=== PATIENT | female | born 1950 | race Caucasian/White ===

== ENCOUNTER 2016-07-25 13:06 | Outpatient (CLI) | payer MEDICARE, OTHER ==
[2016-07-25 17:33] LABS: Anion Gap 17 mmol/L (10-20); BUN (Urea Nitrogen) 21 mg/dL (9.8-20.1); Calc. Creatinine Clearance 0 mL/min (70-130); Calcium 9.8 mg/dL (7.8-10.44); Carbon Dioxide 27 mmol/L (23-31); Chloride 101 mmol/L (98-107); Estimated GFR-MDRD 46
== END 2016-07-25 13:07 | disposition home or self-care (01) ==
LOC: NAVSJIPCSP 13:06
PROVIDERS: ATTEND Internal Medicine Nephrology
DX: I12.9 Hypertensive chronic kidney disease with stage 1 through stage 4 chronic kidney disease, or unspecified chronic kidney disease (principal); N18.3 Chronic kidney disease, stage 3 (moderate)
CPT/HCPCS: 80048; 82570; 84156

== ENCOUNTER 2016-09-05 11:31 | Emergency (ER) | payer MEDICARE, OTHER ==
[~2016-09-05 11:31] MED LIST: Iopamidol 370 76% 100 ML VIAL ONE
[2016-09-05 12:15] LABS: #Basophils 0.2 thou/uL (0.0-0.2); #Eosinphils 0.5 thou/uL (0.0-0.7); #Lymphocytes 2.7 thou/uL (1.20-3.40); #Monocytes 0.7 thou/uL (0.11-0.59); #Neutrophils 10.3 thou/uL (1.40-6.50); %Basophils 1.1 % (0.0-1.0); %Eosinophils 3.8 % (0.0-10.0); %Lymphocytes 18.9 % (21.0-51.0); %Monocytes 4.7 % (0.0-10.0); %Neutrophils 71.5 % (42.0-75.0); Hemoglobin 15.7 g/dL (12.0-16.0); Mean Corpuscular HGB CONC 33.7 g/dL (32.0-36.0); Mean Corpuscular Volume 89.2 fl (81.0-99.0); Mean Platelet Volume 7.5 fL (7.4-10.4); Platelet Count 263 thou/uL (130-400); RBC Distribution Width 11.9 % (11.5-14.5); Red Blood Cell (RBC) Count 5.22 mill/uL (4.20-5.40); White Blood Cell (WBC) Count 14.4 thou/uL (4.8-10.8)
[2016-09-05 12:25] LABS: ALT (SGPT) 22 U/L (0-55); AST (SGOT) 18 U/L (5-34); Albumin 4.4 g/dL (3.4-4.8); Alkaline Phosphatase 95 U/L (40-150); Anion Gap 16 mmol/L (10-20); BUN (Urea Nitrogen) 20 mg/dL (9.8-20.1); Bilirubin, Total 0.4 mg/dL (0.2-1.2); Calc. Creatinine Clearance 0 mL/min (70-130); Calcium 9.5 mg/dL (7.8-10.44); Carbon Dioxide 26 mmol/L (23-31); Chloride 101 mmol/L (98-107); Estimated GFR-MDRD 33; Glucose 104 mg/dL (80-115); Potassium 3.7 mmol/L (3.5-5.1); Protein, Total 7.4 g/dL (5.8-8.1); Sodium 139 mmol/L (136-145)
--- NOTE | 2016-09-05 15:12 | CT ---
CT ANGIO ABDOMEN AND PELVIS WITH CONTRAST: Date: 09/05/16 HISTORY: Evaluate aortic graft. COMPARISON: None. TECHNIQUE: CT angiogram of the abdomen and pelvis performed after the intravenous administration of contrast. 3 D rendering provided. FINDINGS: There are innumerable calcified granulomas throughout both breasts. Lung bases are clear. No pericardial effusion. Spleen is unremarkable. The left kidney is atrophic. Pancreas unremarkable. Likely hepatic steatosis. There is an arterial enhancing mass within the dome of the liver measuring 1.1 x 1.0 cm, hepatic segment 8, large feeding vessel. No adenopathy in the abdomen. Adrenal glands are unremarkable. Moderate diverticular disease sigmoid colon. No free intraperitoneal gas or fluid within the visuali zed upper abdomen. Moderate degenerative disc space disease at L5-S1. Moderate facet arthrosis L4-5 and L5-S1. Vessels: There is extensive plaque of the distal thoracic aorta without narrowing. There is a right renal art erial stent which is nearly completely occluded at the mid portion of the stent, although there is f low within the right renal artery which suggests a near complete stenosis. There is poor enhancement of the right kidney parenchyma. No right renal collateral artery is present. The left renal artery appears nearly completely occluded, although there is some enhancement of the left kidney. There is multifocal 30-40% soft plaque in the upper abdominal aorta. There is soft plaque narrowing of the ostia of the superior celiac artery of approximately 30%. The ostia of the superior mesenteric artery is narrowed by approximately 30%. There is a focal outpouchi ng of the upper abdominal aorta with aorta measuring 3.2 x 2.4 cm with focal outpouching adjacent to the celiac trunk measuring 0.6 x 0.5 x 1.3 cm. The aortobiiliac graft is patent. There is complete occlusion of the [place] proximal iliac arteries. No evidence for endograft leak. IMPRESSION: 1. No evidence of endograft leak. 2. Focal diverticulum and outpouching with minimal overlying stroma over the proximal abdominal aor ta with the diverticulum measuring 0.4 x 0.6 x 1.3 cm. 3. 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 4. 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 5. Arterial enhancing lesion in the hepatic dome measuring 1.1 x 1.0 cm in hepatic segment 8 which may represent a hemangioma. Follow-up ultrasound could be performed in 6 months. 6. Patent aortobiiliac graft with patent anastomosis. POS: [facility]
== END 2016-09-05 15:21 | disposition home or self-care (01) ==
LOC: NAV ERS 11:31
DX: I70.1 Atherosclerosis of renal artery (principal); I10 Essential (primary) hypertension; E05.90 Thyrotoxicosis, unspecified without thyrotoxic crisis or storm; E78.5 Hyperlipidemia, unspecified; F17.210 Nicotine dependence, cigarettes, uncomplicated; Z98.890 Other specified postprocedural states
CPT/HCPCS: 74174; 80053; 85025

== ENCOUNTER 2016-10-18 16:32 | Emergency (ER) | payer MEDICARE, OTHER | END 2016-10-18 16:53 | disposition home or self-care (01) | LOC: NAV ERS 16:32 | DX: K08.89 Other specified disorders of teeth and supporting structures (principal); E05.90 Thyrotoxicosis, unspecified without thyrotoxic crisis or storm; E78.5 Hyperlipidemia, unspecified; I12.9 Hypertensive chronic kidney disease with stage 1 through stage 4 chronic kidney disease, or unspecified chronic kidney disease; N18.9 Chronic kidney disease, unspecified; F17.210 Nicotine dependence, cigarettes, uncomplicated; Z99.2 Dependence on renal dialysis | CPT/HCPCS: 99282 ==

== ENCOUNTER 2017-01-01 11:21 | Outpatient (CLI) | payer MEDICARE, OTHER ==
--- NOTE | 2017-01-01 12:20 | RAD ---
PA AND LATERAL CHEST: History: Fever, cough, chills. FINDINGS: Comparison made with exam of 09-09-16. The heart size is normal. Lungs are well expanded without focal areas of consolidation, pneumothorax , or pleural effusions. Chronic changes are again seen in the lung apices. IMPRESSION: No radiographic evidence of acute cardiopulmonary process. POS: [facility]
== END 2017-01-01 11:22 | disposition home or self-care (01) ==
LOC: NAV RAD 11:21
PROVIDERS: ATTEND Nurse Practitioner Family
DX: R50.9 Fever, unspecified (principal)
CPT/HCPCS: 71020

== ENCOUNTER 2018-05-18 11:11 | Emergency (ER) | payer MEDICARE, OTHER ==
[2018-05-18] MEDS ORDERED: Sodium Chloride 0.9% 1,000 ML ONE ×2 (11:50→14:52)
[2018-05-18] MEDS ORDERED: Sodium Chloride 0.9% 100 ML ONE (11:51)
[2018-05-18] MEDS ORDERED: Piperacillin/Tazobactam 3.375 GM VIAL ONE (11:51)
[2018-05-18 11:59] LABS: #Basophils 0.1 thou/uL (0.0-0.2); #Eosinphils 0.1 thou/uL (0.0-0.7); #Lymphocytes 2.1 thou/uL (1.20-3.40); #Monocytes 1.2 thou/uL (0.11-0.59); #Neutrophils 12.7 thou/uL (1.40-6.50); %Basophils 0.7 % (0.0-1.0); %Eosinophils 0.4 % (0.0-10.0); %Lymphocytes 13.2 % (21.0-51.0); %Monocytes 7.6 % (0.0-10.0); %Neutrophils 78.1 % (42.0-75.0); Mean Corpuscular HGB CONC 33.2 g/dL (32.0-36.0); Mean Corpuscular Hemoglobin 28.7 pg (27.0-31.0); Mean Corpuscular Volume 86.4 fL (78.0-98.0); Mean Platelet Volume 6.7 fL (7.4-10.4); Platelet Count 389 thou/uL (130-400); RBC Distribution Width 11.7 % (11.5-14.5); Red Blood Cell (RBC) Count 4.18 mill/uL (4.20-5.40); White Blood Cell (WBC) Count 16.2 thou/uL (4.8-10.8)
--- NOTE | 2018-05-18 12:04 | RAD ---
2 VIEW CHEST: Date: 05/18/18 HISTORY: Cough. COMPARISON: 01/01/17. FINDINGS: There is evidence of increased density in the right lung base. Overlying breast attenuation is presen t; however, this density does appear asymmetric and is concerning for focal infiltrate in the right l ower lobe. Lungs otherwise clear and unchanged. IMPRESSION: Evidence of new right lower lobe infiltrate. POS: [facility]
[2018-05-18 12:11] LABS: ALT (SGPT) 45 U/L (8-55); AST (SGOT) 36 U/L (5-34); Albumin 3.6 g/dL (3.4-4.8); Alkaline Phosphatase 98 U/L (40-150); Anion Gap 17 mmol/L (10-20); BUN (Urea Nitrogen) 18 mg/dL (9.8-20.1); Bilirubin, Total 0.6 mg/dL (0.2-1.2); Calc. Creatinine Clearance 0 mL/min (70-130); Calcium 9.6 mg/dL (7.8-10.44); Carbon Dioxide 23 mmol/L (23-31); Chloride 102 mmol/L (98-107); Estimated GFR-MDRD 26; Globulin 3.7 g/dL (2.4-3.5); Glucose 123 mg/dL (80-115); Potassium 3.8 mmol/L (3.5-5.1); Protein, Total 7.3 g/dL (6.0-8.3); Sodium 138 mmol/L (136-145)
--- NOTE | 2018-05-18 14:00 | CT ---
CT CHEST WITHOUT CONTRAST: Technique: Multiple contiguous axial images were obtained through the chest without IV enhancement. Indication: Dyspnea, cough. Chest film questioned new infiltrate in the right lower lobe. FINDINGS: Lungs demonstrate chronic parenchymal changes. There is mild interstitial thickening in the periphery of both lungs which is probably chronic. A reticular nodular pattern is seen in the left upper and l eft lower lobe, probably chronic. An irregularly shaped ill-defined 5 mm nodule in the peripheral lef t lower lobe, superior segment. There is evidence of focal patchy alveolar infiltrate in the anterior right lower lobe which would co rrespond to density seen on plain film. This is suspicious for new inflammatory infiltrate given jara ge seen on chest x-ray. Mediastinum is unremarkable. Soft tissues show diffuse density scattered throughout both breasts. Breast parenchyma is very dense and nodular. Findings would suggest silicone nodules, possibly from prior silicone injection procedur e. Recommend clinical correlation regarding this finding. Images through upper abdomen show a mildly atrophic left kidney which is incompletely evaluated. IMPRESSION: 1. Evidence of new patchy infiltrate in the anterior right lower lobe. 2. Chronic lung changes. There is interstitial thickening in the periphery of both lungs. There is re ticular nodular pattern in the left upper and lower lobe which may be chronic. Small nodule in the le ft lower lobe as described. 3. Recommend short term follow up chest CT within 6 months to re-assess these parenchymal changes. 4. Numerous focal nodular densities throughout both breasts. Both breast parenchyma is very dense and nodular. Recommend correlation regarding prior silicone injection procedures. POS: [facility]
[2018-05-18 14:07] LABS: CKMB 0.9 ng/mL (0-6.6)
[2018-05-18] MEDS ORDERED: Albuterol Sulfate 2.5 mg/0.5 ml Neb ONE (15:12)
[2018-05-18] MEDS ORDERED: Sodium Chloride For Inhalation 0.9% 3 ML NEB ONE (15:13)
[2018-05-18] MEDS ORDERED: cefTRIAXone\\ROCEPHIN 1 GM VIAL ONE (15:31)
== END 2018-05-18 17:32 | disposition short-term general hospital (02) ==
LOC: NAV ERS 11:11
DX: J18.9 Pneumonia, unspecified organism (principal); I12.9 Hypertensive chronic kidney disease with stage 1 through stage 4 chronic kidney disease, or unspecified chronic kidney disease; N18.9 Chronic kidney disease, unspecified; D72.829 Elevated white blood cell count, unspecified; E05.90 Thyrotoxicosis, unspecified without thyrotoxic crisis or storm; E78.5 Hyperlipidemia, unspecified; Z87.891 Personal history of nicotine dependence; Z79.899 Other long term (current) drug therapy
CPT/HCPCS: 36415; 71046; 71250; 80053; 82553; 83605; 83880; 84484; 85025; 87040; 87804; 93005; 94640; 94760; 96361; 96365; 96367; J0696; J2543; J7050; J7611; J7620